=== PATIENT | female | born 1980 | race Caucasian/White ===

== ENCOUNTER 2017-10-08 23:03 | Observation (INO) | payer OTHER ==
[~2017-10-08] VITALS: Ht 157.5 cm; Wt 86.3 kg
[2017-10-08] MEDS ORDERED: SODIUM CHLORIDE FLUSH 10ML SYR IVF ONE (23:30)
[2017-10-08] MEDS ORDERED: SODIUM CHLORIDE 0.9% 1,000ML IVBOLUS ONE (23:30)
[2017-10-08 23:45] LABS: BASOPHILS # (AUTO) 0.03 x10^3/uL (0-0.1); BASOPHILS % (AUTO) 0 % (0-1); EOSINOPHILS # (AUTO) 0.03 x10^3/uL (0-0.4); EOSINOPHILS % (AUTO) 1 % (1-7); LYMPHOCYTES # (AUTO) 1.28 x10^3/uL (1-3.4); LYMPHOCYTES % (AUTO) 21 % (22-44); MD NO; MEAN CORPUSCULAR HEMOGLOBIN 32.3 pg (27.0-34.8); MEAN CORPUSCULAR HGB CONC 33.9 g/dL (32.4-35.8); MEAN CORPUSCULAR VOLUME 95.4 fL (80-100); MEAN PLATELET VOLUME 7.5 fL (7.4-10.4); MONOCYTES # (AUTO) 0.31 x10^3/uL (0.2-0.8); MONOCYTES % (AUTO) 5 % (2-9); NEUTROPHILS # (AUTO) 4.54 x10^3/uL (1.8-6.8); NEUTROPHILS % (AUTO) 73 % (42-75); PLATELET COUNT 216 x10^3/uL (130-400); RED BLOOD COUNT 3.77 x10^6/uL (3.82-5.3); RED CELL DISTRIBUTION WIDTH 12.3 % (9.6-15.2)
[2017-10-08 23:59] LABS: ALBUMIN 3.6 g/dL (3.4-5.0); ANION GAP 7 mmol/L (5-15); CALCIUM 8.3 mg/dL (8.5-10.1); CHLORIDE 107 mmol/L (98-107)
[2017-10-09 00:05] LABS: ALANINE AMINOTRANSFERASE 19 U/L (12-78); ALKALINE PHOSPHATASE 62 U/L (45-117); BILIRUBIN,TOTAL 0.4 mg/dL (0.2-1.0); CREATININE 1.18 mg/dL (0.55-1.02); TOTAL PROTEIN 6.9 g/dL (6.4-8.2); TROPONIN I < 0.015 ng/mL (0.000-0.045)
[2017-10-09] MEDS ORDERED: ZIPRASIDONE 20 MG INJ IM ONE (02:22)
[2017-10-09 03:37] LABS: TROPONIN I 0.067 ng/mL (0.000-0.045)
[2017-10-09] MEDS ORDERED: ONDANSETRON 2MG/ML, 2ML IVPush PRN ×2 (04:30→06:30)
[2017-10-09] MEDS ORDERED: MORPHINE SULFATE 4 MG/ML, 1ML IVPush PRN (04:30)
[2017-10-09] MEDS ORDERED: QUET400T PO (04:44)
[2017-10-09] MEDS ORDERED: LITH450T PO (04:44)
[2017-10-09] MEDS ORDERED: QUET25TA PO (04:44)
[2017-10-09] MEDS ORDERED: QUET200T PO (04:44)
[2017-10-09] MEDS ORDERED: CARB200T4 PO (04:44)
[2017-10-09] MEDS ORDERED: AMIL5TAB2 PO ×2 (04:44)
[2017-10-09 06:16] VITALS: BP 112/64
[2017-10-09 06:28] VITALS: BP 112/64
[2017-10-09] MEDS ORDERED: ENOXAPARIN 40 MG/0.4 ML SQ SCH (06:30)
[2017-10-09] MEDS ORDERED: ONDANSETRON ODT 4 MG PO PRN (06:30)
[2017-10-09] MEDS ORDERED: LABETALOL 5MG/ML, 20ML IVPush PRN (06:30)
[2017-10-09] MEDS ORDERED: POLYETHYLENE GLYCOL 17 GM PACKET PO PRN (06:30)
[2017-10-09] MEDS ORDERED: morphine SULFATE 10 MG/ML, 1ML IVPush PRN (06:30)
[2017-10-09 07:35] LABS: FREE T4 (FREE THYROXINE) 0.8 ng/dL (0.76-1.46); THYROID STIMULATING HORMONE 1.92 mIU/L (0.358-3.740)
[2017-10-09] MEDS ORDERED: SENNA/DOCUSATE TABLET PO SCH (09:00)
[2017-10-09] MEDS: D5%-0.45% NACL 1,000 ML IV SCH ×2 (09:22→16:20)
[2017-10-09 10:31] LABS: CHOLESTEROL, TOTAL 173 mg/dL (140-239); TRIGLYCERIDES 81 mg/dL (50-200); VLDL CHOLESTEROL 16 mg/dL (0-25)
[2017-10-09 10:33] LABS: CHOL/HDL RATIO 2.3; HDL CHOL % 44 % (28-40); HDL CHOLESTEROL (DIRECT) 76 mg/dL (40-60); LDL CHOLESTEROL,CALCULATED 81 mg/dL (54-169); LDL/HDL RATIO 1.1 (0.5-3.0); TROPONIN I < 0.015 ng/mL (0.000-0.045)
[2017-10-09 11:00] VITALS: BP 123/79
[2017-10-09 12:47] LABS: HEMOGLOBIN A1C 4.9 % (4.2-6.3)
[2017-10-09] MEDS ORDERED: REGADENOSON 0.4 MG/5 ML SYRINGE ONE (13:51)
== END 2017-10-09 18:40 | disposition home or self-care (01) ==
LOC: ED 10-09 02:04 → INTOOBSV 10-09 04:14 → EDIP 10-09 04:14 → 5SO 10-09 05:49
PROVIDERS: ADMIT Family Medicine; ATTEND Family Medicine
DX: R07.89 Other chest pain (principal); F31.9 Bipolar disorder, unspecified; E11.9 Type 2 diabetes mellitus without complications
CPT/HCPCS: 36415; 71045; 78452; 80053; 80061; 80178; 83036; 83735; 83880; 84100; 84439; 84443; 84484; 84703; 85025; 85379; 93005; 93017; 96361; 96372; 96374; 99285; A9502; C9898; G0378; J1650; J2270; J2785; J7030